=== PATIENT | female | born 1955 | race Caucasian/White ===

== ENCOUNTER 2016-09-06 15:37 | Emergency (ER) | payer MEDICAID ==
--- NOTE | 2016-09-06 15:53 | ED Physician Chart ---
Chief Complaint/HPI - Patient Information Date Seen:: 09/06/16 Time Seen:: 15:40 Chief Complaint:: burning on urination History of Present Illness:: 51-year-old female complains of acute, constant, worsening, moderate, burning, nonradiating, dysuria that started 2 days ago. Has associated increased frequency of urination. Denies fevers, nausea, vomiting, abdominal pain, chest pain, palpitations, numbness, tingling, gross hematuria, gross blood in stool. Vitals:: Vital Signs - 8 hr 09/06/16 15:40 Temp 98.2 F HR 72 RR 16 BP 111/65 O2 Sat % 97 Historian:: Patient Review:: Nurse's Note Reviewed Review of Systems - Review of Systems Other: Complete system review otherwise unremarkable except as noted in history of present illness. Past Medical History - Past Medical History Past Medical History: DM Family History: None Social History: Non Smoker, No Alcohol, No Drug Use, Other Surgical History: Psychiatricy History: None Medication: None Family Medical History - Family Member Mother History Unknown: Yes mother History Unknown: Yes Physical Exam - Physical Examination Other:: INITIAL VITAL SIGNS: Reviewed by me GENERAL: Alert and interactive. No acute distress HEAD: Head is normocephalic and atraumatic EYES: EOMI. PERRL. No scleral icterus. No conjunctival injection ENT: Moist mucous membranes. NECK: Supple. No masses. Full range of motion RESPIRATORY: No tachypnea. Clear breath sounds bilaterally. No wheezing, rales, or rhonchi CV: Regular rate and rhythm. No murmurs, rubs, or gallops ABDOMEN: Soft, non-distended, non-tender. No guarding. No rebound. No masses. EXTREMITIES: No deformity. No cyanosis. No edema. SKIN: Warm and dry. No obvious rashes. NEUROLOGIC: Alert and oriented. Face is symmetric. Speech is normal. Moves all extremities equally. Motor and sensory distally intact. Labs/Radiology/EKG Results - Lab Results Results: Lab Results 09/06/16 Range/Units 15:55 Urine Source CLEAN C Urine Color YELLOW Urine Clarity CLOUDY H (CLEAR) Urine pH 7.0 Ur Specific [place] 1.020 (1.005-1.030) Urine Protein 30 H (NEGATIVE) mg/dL Urine Glucose (UA) 500 H (NEGATIVE) mg/dL Urine Ketones NEGATIVE (NEGATIVE) mg/dL Urine Blood SMALL H (NEGATIVE) Urine Nitrate POSITIVE H (NEGATIVE) Urine Bilirubin NEGATIVE (NEGATIVE) Urine Urobilinogen 0.2 (0.2 - 1.0) E.U./dL Ur Leukocyte Esterase LARGE H (NEGATIVE) Urine RBC 2-5 (0-5) /hpf Urine WBC >100 H (0-5) /hpf Ur Epithelial Cells NONE SEEN (FEW) /lpf Calcium Oxalate Crystal FEW /hpf Urine Bacteria MODERATE (NONE SEEN) /hpf ED Septic Shock - . Is Septic Shock (SBP<90, OR Lactate>4 mmol\L) present?: No - <6hrs of presentation: Vital Signs: Vital Signs - 8 hr 09/06/16 15:40 Temp 98.2 F HR 72 RR 16 BP 111/65 O2 Sat % 97 Reassessment (Disposition) - Reassessment Reassessment:: Patient presents with dysuria 3 days. UTI on UA. No fevers, no CVA tenderness. We will prescribe Macrobid to be taken 100 mg twice a day 5 days. Recommend follow-up with primary care clinic 1-2 days. Return to ER precautions were given. Patient says she understands and agrees with plan. Reassessment Condition:: Improved - Diagnosis Diagnosis:: Acute UTI, slightly unspecified with hematuria - Aftercare/Follow up Instructions Aftercare/Follow-Up Instructions:: Counseled pt regarding lab results/diagnosis & need follow up, Refer to Discharge Instructions Medication Prescribed:: Macrobid - Patient Disposition Discharge/Transfer:: Home Time:: 16:38 Condition at Disposition:: Improved ED Discharge Plan - Patient Disposition Admit/Discharge/Transfer: PT DISCHARGED HOME Condition at Disposition: Improved Instructions: Urinary Tract Infection Additional Instructions: 1. Follow up with your primary care provider in 1-2 days. 2. Take medication as prescribed. 3. IF urinary symptoms worsen or develop a fever, return to the emergency department
[2016-09-06 16:55] LABS: URINE BILIRUBIN NEGATIVE (NEGATIVE); URINE BLOOD SMALL (NEGATIVE); URINE COLOR YELLOW; URINE GLUCOSE (UA) 500 mg/dL (NEGATIVE); URINE KETONE NEGATIVE (NEGATIVE); URINE PROTEIN 30 mg/dL (NEGATIVE)
[2016-09-06 16:56] LABS: URINE UROBILINOGEN 0.2 E.U./dL (0.2 - 1.0)
[2016-09-06 16:59] LABS: URINE BACTERIA MODERATE /hpf (NONE SEEN); URINE CALCIUM OXALATE CRYSTALS FEW /hpf; URINE EPITHELIAL CELLS NONE SEEN /lpf (FEW); URINE WBC >100 /hpf (0-5)
== END 2016-09-06 17:15 | disposition home or self-care (01) ==
LOC: ER 15:37
DX: N39.0 Urinary tract infection, site not specified (principal); E11.9 Type 2 diabetes mellitus without complications
CPT/HCPCS: 81001-TC; 87086-90; Z7502